=== PATIENT | male | born 1995 | race Two or more races ===

== ENCOUNTER 2016-04-11 13:35 | Emergency (ER) | payer OTHER ==
[2016-04-11 14:30] VITALS: BP 132/51; PULSE 68; RESP 14; TEMP 97.3; O2SAT 99
--- NOTE | 2016-04-11 14:57 | DX ---
Left knee, 4 views. History: Knee pain and swelling after snowboarding injury. Findings: Moderate suprapatellar joint effusion. No evidence for acute fracture or dislocation. Nakia l mineralization. No significant joint narrowing or periarticular erosion. Impression: Moderate suprapatellar joint effusion. No evidence for acute fracture.
--- NOTE | 2016-04-11 15:25 | UCPHY ---
H & P Time Seen by Provider: 04/11/16 15:15 Patient Type: New HPI/ROS: CHIEF COMPLAINT: Left knee pain post snowboarding HISTORY OF PRESENT ILLNESS: 21-year-old male complaining of left knee pain for the past 4 days after he was snowboarding and fell possibly torquing his left knee. He is able to bear partial weight only. Reproducible pain with extension and flexion. Tender to palpation medial aspect. Soft tissue swelling noted. PRIMARY CARE PROVIDER: REVIEW OF SYSTEMS: A ten point review of systems was performed and is negative with the exception of the items mentioned in the HPI PHYSICAL EXAM (Prior to examination, patient consented to physical exam, hands were washed and my usual and customary physical exam procedures followed) 1) GENERAL: Well-developed, well-nourished, alert and oriented. Appears to be in no acute distress. 2) HEAD: Normocephalic 3) HEENT: Pupils equal, round, reactive to light bilaterally. 4) LUNGS: Breathing comfortably. 5) MUSCULOSKELETAL: Exam of the left knee shows prepatellar effusion. Tender to palpation medial aspect. Reproducible pain with flexion beyond extension. . Compartments are soft. 6) SKIN: intact 7) VASCULAR: DP,PT pulses and cap refill present and brisk distally DIFFERENTIAL DIAGNOSIS: in no particular order including but not limited to fracture, sprain, compartment syndrome, septic arthritis, DVT Procedure: Crutches indications for crutch use discussed with patient. Patient fitted for crutches by ER staff. Observed ambulating with crutches. I think the patient has the capacity to safely use crutches. Usual and customary crutch walking precautions provided Procedure: Splint A knee immobilizer splint was applied by ER ophthalmology technician. After application of the splint I returned and re-examined the patient. The splint was adequately immobilizing the joint and distal to the splint the patient's circulation and sensation were intact. Patient shows no signs of compartment syndrome. Was given orthopedic precautions. MEDICAL DECISION MAKING Serial evaluations performed on patient. I discussed the limitations of x-ray in diagnosis of knee pain and injury. At this time I do not think that emergent MRI is currently indicated. However, I have recommended follow-up with Orthopedic surgery and provided this referral information. Informed the patient that outpatient MRI may be indicated. Doubt septic arthritis. Doubt compartment syndrome. Doubt DVT. Smoking Status: Never smoked Constitutional: Initial Vital Signs Temperature (C) 36.3 C 04/11/16 14:19 Heart Rate 68 04/11/16 14:19 Respiratory Rate 14 04/11/16 14:19 Blood Pressure 132/51 H 04/11/16 14:19 O2 Sat (%) 99 04/11/16 14:19 O2 Delivery Mode Room Air Allergies/Adverse Reactions: No Known Allergies Allergy (Unverified 04/11/16 14:30) Home Medications: Medication Instructions Recorded oxyCODONE/APAP 5/325 [Percocet 1 tab PO Q6 #10 tab 04/11/16 5/325] MDM/Departure - Depart Disposition: Home, Routine, Self-Care Clinical Impression: Left knee sprain Condition: Good Instructions: Knee Sprain (ED) Additional Instructions: Return to the ER immediately if you experience discoloration, have worsening pain, numbness, tingling, or any other symptoms that concern you. If you received x-rays in the emergency department today, be advised, that ligamentous , tendon, muscular, and other non-bony injury cannot be fully ruled out. Try to keep your affected extremity elevated above the level of your chest, and keep cold packs on the affected area, for the next 48 hours. Prescriptions: oxyCODONE/APAP 5/325 [Percocet 5/325] 1 tab PO Q6 #10 tab Referrals: Edilberto Meeks MD [Medical Doctor] - 5-7 days, call for appt. - PQRS PQRS Measurement: Not applicable
== END 2016-04-11 15:49 | disposition home or self-care (01) ==
LOC: CED 13:35
DX: S83.92XA Sprain of unspecified site of left knee, initial encounter (principal); M25.462 Effusion, left knee
CPT/HCPCS: 73564-PO; G0463-PO; L1830

== ENCOUNTER 2016-05-03 18:51 | Emergency (ER) | payer OTHER ==
[2016-05-03 19:07] VITALS: BP 142/45; PULSE 63; RESP 14; TEMP 97.9; O2SAT 96
--- NOTE | 2016-05-03 19:33 | UCPHY ---
H & P Time Seen by Provider: 05/03/16 19:20 Patient Type: Established HPI/ROS: CHIEF COMPLAINT: left knee injury HISTORY OF PRESENT ILLNESS: The patient is a 21-year-old male who presents to the emergency department "to have my knee checked out." Patient hurt his knee 3 weeks ago while snowboarding. He was seen at Urgent Care and had an x-ray. He was told there was no broken bones. He was placed in a splint and crutches. His knee has been improving. He is able to run a mi on it. He wants his knee checked before he snow boarder again. He has no pain at rest. He denies swelling. No numbness or tingling. REVIEW OF SYSTEMS: Negative Past Medical/Surgical History: Left knee injury Smoking Status: Never smoked Physical Exam: General Appearance: Alert and no distress. Head: Pupils equal. Normal. Respiratory: No respiratory distress. Cardiac: regular rate and rhythm. Extremities: patient's left lower extremity appears normal. His knee has no swelling or erythema. Full range of motion. No patellar tenderness. Patient is able to ambulate without difficulty. No ligamentous instability. Skin: No rashes or lesions. Neuro: Alert. Normal mood and affect. Constitutional: Initial Vital Signs Temperature (C) 36.6 C 05/03/16 19:01 Heart Rate 63 05/03/16 19:01 Respiratory Rate 14 05/03/16 19:01 Blood Pressure 142/45 H 05/03/16 19:01 O2 Sat (%) 96 05/03/16 19:01 O2 Delivery Mode Room Air Allergies/Adverse Reactions: No Known Allergies Allergy (Unverified 05/03/16 19:08) Home Medications: Medication Instructions Recorded NK [No Known Home Meds] 05/03/16 Medical Decision Making ED Course/Re-evaluation: I discussed possible etiologies with the patient. I reviewed the patient's images from his previous visit. I do not feel the patient needs further imaging at this time. I discussed slowly increasing his activity level. The patient was given warnings prior to leaving. Differential Diagnosis: My differential includes but is not limited to sprain, strain, fracture, dislocation, internal derangement of the knee Departure - Departure Disposition: Home, Routine, Self-Care Clinical Impression: Knee pain, acute Qualifiers: Laterality: left Qualified Code(s): M25.562 - Pain in left knee Condition: Good Instructions: Knee Sprain (ED) Additional Instructions: Return with increasing pain, swelling or any other concerns. Referrals: Mikhail Zepeda MD [Primary Care Provider] - 5-7 days, if not improved - PQRS PQRS Measurement: na
== END 2016-05-03 19:40 | disposition home or self-care (01) ==
LOC: CED 18:51
DX: M25.562 Pain in left knee (principal)
CPT/HCPCS: 99213-PO; G0463-PO